=== PATIENT | male | born 1965 | race Caucasian/White ===

== ENCOUNTER 2018-09-15 11:25 | Day surgery (SDC) | payer OTHER, SELFPAY ==
[2018-09-12 14:07] VITALS: BMI 23.7
[2018-09-15] VITALS (7 sets, daily range): BP systolic 109–144; BP diastolic 64–93; PULSE 64–86; RESP 16–18; TEMP 36.7; O2SAT 96–100
--- NOTE | 2018-09-15 12:57 | HMH.PROC ---
[facility] Procedure Note Procedure Note:: Colonoscopy Procedure Report: Colonoscopy Endoscopist: Pradip Lemon II, MD Referring physician: BROOKE Nguyen Date of Procedure: September 15, 2018 Equipment: Olympus 180 variable stiffness pediatric colonoscope Sedation: MAC sedation Indication: Mr. Talbot is a 53-year-old gentleman who is here for diagnostic colonoscopy. He has had some periumbilical abdominal pain, weight loss, nausea and abdominal discomfort. He has some bloating and gassiness. He has some bowel irregularity with constipation that sometimes may alternate to diarrhea. He reports no family history of colon cancer. His symptoms have been for the last 6 months. Procedure: Prior to the procedure, a history and physical exam was performed, and patient's medications and allergies were reviewed. The risks, benefits and alternatives of the sedation and procedure were discussed with the patient. All questions were answered and informed consent was obtained. The patient was brought to the procedure room. Patient identification and proposed procedure were verified by the physician and the nurse. The patient was placed in a left lateral decubitus position and the scope was passed under direct vision. Throughout the procedure, the patient's blood pressure, pulse, and oxygen saturations were monitored continuously. The colonoscopy was accomplished without difficulty. The patient tolerated the procedure well. Findings: On digital rectal examination there was normal rectal tone. There were no external hemorrhoids. The prostate was 2+, smooth, soft, symmetric without nodules. The colonoscope was introduced through the anal canal to the rectum and advanced to the cecum. The ileocecal valve and appendiceal orifice were identified. The scope was advanced a short distance into the ileum which appeared grossly normal. The scope was then withdrawn into the colon. The cecum, ascending and transverse colon and mucosa were grossly normal. There were scattered diverticuli throughout the descending and sigmoid colon (LEFT colon). The rectum itself was normal. Upon retroflexion within the rectum there were grade 1-2 internal hemorrhoids. The preparation was excellent throughout with [place] Preparation Score of 9. The cecal time was 12 minutes. Impression: 1. Left-sided diverticulosis 2. Grade 1-2 internal hemorrhoids Plan: The patient will not require screening/surveillance colonoscopy again for 10 years by ACS guidelines. I would encourage dietary measures and fiber bowel regimen on a long-term daily maintenance basis. Based upon his pain and weight loss, I will recommend imaging study/CAT scan of the abdomen and pelvis with IV/oral contrast.
== END 2018-09-15 14:03 | disposition home or self-care (01) ==
LOC: OUTP 11:27
PROVIDERS: PCP Family Medicine; Visit Provider Internal Medicine Gastroenterology
PROC: 0DJD8ZZ Inspection of Lower Intestinal Tract, Via Natural or Artificial Opening Endoscopic (ICD-10-PCS; CPT 45378; principal; 2018-09-15 12:30)
DX: K57.30 Diverticulosis of large intestine without perforation or abscess without bleeding (principal); K64.0 First degree hemorrhoids
CPT/HCPCS: 45378

== ENCOUNTER → 2018-10-30 10:21 | Outpatient (CLI) | payer OTHER, SELFPAY ==
--- NOTE | 2018-10-30 10:26 | CT_ITS ---
CT abdomen pelvis w con CLINICAL INDICATION: Mid abdominal pain/discomfort. Polyps, diverticulosis ITS.REASON: DIVERTICULOSIS,ABD PAIN,WGTLOSS ORDERING PHYSICIAN: Pradip Lemon MD PATIENT AGE: 53 years COMPARISON: None TECHNIQUE: Contrast Used:75ml Optiray 350 Oral Contrast: 450ml Redicat Axial images obtained with sagittal and coronal reformats. All CT scans at the facility use one or more dose reduction, viz: automated exposure control, ma/kV adjustment per patient size (including targeted exams where dose is matched to indication, i.e. head), or iterative reconstruction technique. FINDINGS: Lung bases are clear. The liver, gallbladder, spleen, adrenal glands, pancreas, and kidneys have an unremarkable appearance. No evidence of appendicitis or diverticulitis. There are few colonic diverticula. There is thickening of the wall of the ascending and transverse colon nonspecific and could be due to nondistention or colitis. No pelvic mass abnormal fluid collection or focal inflammatory change of the pelvis. Postsurgical changes are present from prior right inguinal hernia repair similar to the previous exam. No recurrent hernia evident. There is a small umbilical hernia containing fat unchanged. IMPRESSION: 1. Thickened appearance of the ascending and transverse colon which could be due to nondistention or colitis. 2. Scattered colonic diverticula without diverticulitis. 3. Prior right hernia repair. Small umbilical hernia containing fat
== END ==
PROVIDERS: PCP Family Medicine; Visit Provider Internal Medicine Gastroenterology
DX: K57.30 Diverticulosis of large intestine without perforation or abscess without bleeding (principal); R10.9 Unspecified abdominal pain; R63.4 Abnormal weight loss
CPT/HCPCS: 74177; Q9967

== ENCOUNTER → 2020-10-21 09:46 | Outpatient (CLI) | payer OTHER, SELFPAY ==
--- NOTE | 2020-10-21 09:46 | CT_ITS ---
PROCEDURE: CT SOFT TISSUE NECK WO CON CLINICAL HISTORY: tongue irritation Ulceration on left-sided with left neck swelling COMPARISON: No exams were available for comparison TECHNIQUE: Oral Contrast: None IV Contrast: None Axial images obtained with sagittal and coronal reformats. All CT scans at the facility use one or more dose reduction, viz: automated exposure control, ma/kV adjustment per patient size (including targeted exams where dose is matched to indication, i.e. head), or iterative reconstruction technique. FINDINGS: No obvious nasopharyngeal mass. Minimal calcification is noted within the central the adenoids nonspecific. The oropharynx hypopharynx, larynx, and epiglottis have an unremarkable appearance. No obvious tongue mass. A BB is placed along the left anterior lateral aspect of the neck. Just deep to the BB is a mildly prominent submandibular gland. The right submandibular gland is also somewhat prominent. There are few small cervical lymph nodes bilaterally. No dominant adenopathy is evident. The largest node on the left level 2 a measures 1.9 x 1.2 cm. There is scarring in the lung apices with centrilobular emphysematous change. IMPRESSION: There is prominence of the submandibular glands on both sides left slightly greater than right. A BB is placed of the left neck anteriorly. Just deep to this BB is the submandibular gland. No other abnormalities apparent at that region. Scattered small cervical lymph nodes are present the largest level 2A on the left at 1.9 by 1.2 cm. No tongue mass apparent. No abscess or other significant anomaly. Dictated by: Anton Garcia MD 10/21/2020 11:37 Anton Garcia MD in [place] 10/21/2020 11:37
== END ==
PROVIDERS: PCP Family Medicine; Visit Provider Otolaryngology
DX: K14.9 Disease of tongue, unspecified (principal); R22.0 Localized swelling, mass and lump, head
CPT/HCPCS: 70490

== ENCOUNTER 2021-01-06 18:33 | Emergency (ER) | payer SELFPAY ==
[2021-01-06 18:46] VITALS: BMI 20.3
[2021-01-06 20:15] VITALS: BP 160/94; PULSE 69; RESP 20; TEMP 36.9; O2SAT 98; BMI 22.1
--- NOTE | 2021-01-06 20:42 | HMH.EDUTC ---
[facility] [place] Clinical Impression: Lesion of tongue Disposition: Home, Self-Care Condition on Discharge: Good Instructions: DI for Mouth Lesions, DI for Mouth Pain Additional Instructions: Continue to follow up with Dr. Zapata or you could follow up with Dr. Fernández. I sent a referral to her office. Call her and get an appointment, or continue to see Dr. Zapata. REgardless, make sure you are following up with an ENT doctor. Take the augmentin that we prescribed. Use the lidocaine as directed for pain and discomfort. Follow up with your primary care doctor. GO TO THE ER FOR ANY WORSENING SYMPTOMS OR CONCERNS. Prescriptions: Amoxicillin/Potassium Clav [Augmentin 875-125 Tablet] 1 tab PO Q12H 10 Days #20 tab Transmission Status: Received by [facility] lidocaine HCL [Lidocaine viscous 100mL bottle] 1 applicatio TP TIDP PRN #60 ml PRN Reason: Mouth Irritation Transmission Status: Received by [facility] Referrals: Ambar Ricardo MD [Primary Care Provider] - Yen Fernández MD [Consulting Physician] - Time of Disposition: 20:53 Medical Decision Making - Medical Records Medical records reviewed: No: I reviewed the patient's medical records. - Ozzy Inquiry Pt receiving controlled substance: No Vital Signs: 01/06/21 20:15 01/06/21 21:01 Temperature 98.4 F 98.4 F Temperature Source Oral Pulse Rate 69 Pulse Rate [Left Brachial] 69 Respiratory Rate 20 20 Blood Pressure 160/94 H Blood Pressure [Left Arm] 160/94 H Blood Pressure Mean [Left Arm] 116 Blood Pressure Source [Left Arm] Automatic Cuff Blood Pressure Position [Left Arm] Sitting 02 Sat by Pulse Oximetry 98 Oxygen Delivery Method Room Air [facility] [place] - General Stated complaint: hole in tongue, thrush Time Seen by Provider: 01/06/21 20:42 Mode of Arrival: Ambulatory Source of Information: Patient Limitations: No Limitations Description of Symptoms (Recalled from Triage Doc. by RN): PATIENT C/O HOLE TO BACK OF LEFT SIDE OF TONGUE SINCE SEPTEMBER. HE WAS RECENTLY PRESCRIBED MAGIC MOUTH WASH AND AZITHROMYCIN BY DR. ZAPATA, BUT STATES IT IS NOT HELPING. REPORTS RECENT WEIGHT LOSS D/T NOT BEING ABLE TO EAT HEENT Symptoms (Recalled from RN notes): Yes Resp Symptoms (Recalled from RN notes): No Skin Symptoms (Recalled from RN notes): No MS Symptoms (Recalled from RN notes): No Functional Status (Recalled from RN notes): WNL - History of Present Illness Provider Complaint: He has had a hole in the side of his tongue since September. He has been seeing Dr. Zapata (ENT) for this. He is taking azithromycin and magic mouthwash for this. He states that it is not helping. - Related Data Previous Rx's Medication Instructions Recorded azithromycin 250 mg tablet See Rx Instructions PO .COMPLEX #6 12/23/20 tab Amoxicillin/Potassium Clav 1 tab PO Q12H 10 Days #20 tab 01/06/21 [Augmentin 875-125 Tablet] lidocaine HCL [Lidocaine viscous 1 applicatio TP TIDP PRN #60 ml 01/06/21 100mL bottle] Allergies Allergy/AdvReac Type Severity Reaction Status Date / Time chocolate flavor Allergy Intermediate I-RASH Verified 10/22/20 09:40 [From CHOCOLATE (FOOD/DRUG)] soap Allergy Intermediate I-RASH Verified 10/22/20 09:40 iodine Allergy Verified 10/22/20 09:40 From CHOCOLATE (FOOD/DRUG) Allergy Intermediate I-RASH Uncoded 10/13/20 14:32 - Worker's Comp Is this a Worker's Comp case?: No [facility] History - Hepatitis A Screen Drug use history?: No High risk sexual behaviors?: No History of sexually transmitted infection?: No Currently employed?: No Childcare worker?: No Do you have indoor plumbing?: Yes Do you have electricity?: Yes Attestation statement:: This patient has been screened for Hepatitis A risk factors. I have reviewed the patient's past medical history: Yes Medical History: Denies:: Diabetes Mellitus Type 1, Diabetes Mellitus Type 2, Internal Pacemaker, Lung Disease, Seizures Other [place]
[2021-01-06 21:01] VITALS: BP 160/94; PULSE 69; RESP 20; TEMP 36.9; O2SAT 98
== END 2021-01-06 21:03 | disposition home or self-care (01) ==
PROVIDERS: Emergency Provider Nurse Practitioner Family; PCP Family Medicine
DX: K14.8 Other diseases of tongue (principal); F17.210 Nicotine dependence, cigarettes, uncomplicated
CPT/HCPCS: 99202; G0463

== ENCOUNTER → 2021-01-20 10:46 | Outpatient (CLI) | payer SELFPAY ==
--- NOTE | 2021-01-20 10:49 | CT_ITS ---
PROCEDURE: CT SOFT TISSUE NECK W CON CLINICAL HISTORY: ORAL LESION Ulcerative lesion on left-sided tongue COMPARISON: CT CT SOFT TISSUE NECK WO CON from 10/21/2020 TECHNIQUE: Oral Contrast: None IV Contrast: 75 mL Isovue 370 Axial images obtained with sagittal and coronal reformats. All CT scans at the facility use one or more dose reduction, viz: automated exposure control, ma/kV adjustment per patient size (including targeted exams where dose is matched to indication, i.e. head), or iterative reconstruction technique. FINDINGS: Along the left lateral aspect of the tongue there is a small gas locule measuring approximately 5 mm. Around this area there is an irregular area of contrast enhancement measuring 2.4 by 1.5 cm involving the left lateral aspect of the tongue extending to the buccal surface. Unfortunately there is moderate amount artifact in this region from the patient's dental work. The adjacent mandible does not appear to be eroded. This involves the hyoglossus muscle and base of the lateral aspect of the tongue. The nasopharynx, oropharynx, uvula, hypopharynx, epiglottis, glottic and subglottic region have an unremarkable appearance. Thyroid gland appears unremarkable. Images of the lung apex demonstrate COPD with paraseptal emphysematous changes and biapical scarring. Nodular opacity is present in the right upper lobe posteriorly and may be due to an area of scarring measuring 5 mm. This is adjacent to an area of scarring. The parotid and submandibular glands have an unremarkable appearance. There is a small cervical lymph node in the left jugular chain, level 2 at 1.8 x 0.9 cm. No enlarged nodes apparent. IMPRESSION: Ulcerating 2.4 x 1.5 cm enhancing lesion in the left lateral aspect of the stung as described above. This is suspicious for neoplasm. There is a small left jugular chain node at 1.8 x 0.9 cm. No dominant adenopathy apparent. Dictated by: Anton Garcia MD 01/23/2021 07:47 Anton Garcia MD in [place] 01/23/2021 07:47
== END ==
PROVIDERS: PCP Family Medicine; Visit Provider Otolaryngology
DX: K13.70 Unspecified lesions of oral mucosa (principal)
CPT/HCPCS: 70491; Q9967

== ENCOUNTER 2021-03-06 18:11 | Emergency (ER) | payer SELFPAY ==
[2021-03-06 18:30] VITALS: BP 116/80; PULSE 91; RESP 16; TEMP 37.6; O2SAT 95; BMI 20.3
--- NOTE | 2021-03-06 19:09 | HMH.EDGENADL ---
ED Disposition Clinical Impression: Wound dehiscence, external operation Qualifiers: Encounter type: initial encounter Qualified Code(s): T81.31XA - Disruption of external operation (surgical) wound, not elsewhere classified, initial encounter Disposition: Home, Self-Care Condition on Discharge: Good Instructions: DI for Wound Dehiscence Referrals: Ambar Ricardo MD [Primary Care Provider] - - Critical Care Critical Care Time: No Attestation: On 03/06/21, the high probability of a clinically significant, sudden or life threatening deterioration of the following system(s) required my full and direct attention, intervention and personal management. The time I documented below is in addition to time spent performing reported procedures but includes the following listed in this critical care notation. Medical Decision Making - Medical Records Medical records reviewed: Yes: I reviewed the patient's medical records. - Ozzy Inquiry Pt receiving controlled substance: No Vital Signs: 03/06/21 18:30 Temperature 99.7 F H Temperature Source Oral Pulse Rate [Left Radial] 91 H Respiratory Rate 16 Blood Pressure [Left Arm] 116/80 Blood Pressure Mean [Left Arm] 92 Blood Pressure Source [Left Arm] Automatic Cuff Blood Pressure Position [Left Arm] Sitting 02 Sat by Pulse Oximetry 95 Oxygen Delivery Method Room Air Medical Decision Narrative: 56-year-old male presented to the emergency department for wound evaluation. Patient had recent sutures removed. Patient has evidence of wound dehiscence underneath the chin. I do not believe to be appropriate for closure at this time as sutures were removed over 10 days ago. We will apply wet-to-dry dressing. I did explain to the patient that he is to follow-up with his primary surgeon regarding this. He verbalized understanding. I did instruct him to keep the dressing on until he was evaluated by his primary surgeon. General Adult HPI - General Chief complaint: Skin/Abscess/Foreign Body Stated complaint: SURG 02/23 ON NECK NEED DELISA TO BE BUP BACK IN Time Seen by Provider: 03/06/21 18:35 Mode of Arrival: Ambulatory Limitations: No Limitations Description of Symptoms (Recalled from ER Triage Doc. by RN): pt reports his surgical incision under his chin has dehised. Pt reports had surgery on 02/23/21, delisa were removed on tuesday of this week and now wound is opening back up. pt reports had surgery to remove multiple lymph nodes r/t cancer - History of Present Illness HPI narrative: This is a 56-year-old male presented to the emergency department for wound evaluation. Patient has a history of lymphoma. He states that he was just [facility] and had excisions of some lymph nodes done. Patient had sutures removed 10 days ago. He is concerned because the wound appears to have opened again. Denies any trauma to the area. Not having any discharge. Just has a small area that is open. Is not have any pain in the area. Denies any fevers or chills. No chest pain or shortness of breath. Difficulty swallowing. No abdominal pain or vomiting. No diarrhea. - Related Data Previous Rx's Medication Instructions Recorded azithromycin 250 mg tablet See Rx Instructions PO .COMPLEX #6 12/23/20 tab Amoxicillin/Potassium Clav 1 tab PO Q12H 10 Days #20 tab 01/06/21 [Augmentin 875-125 Tablet] lidocaine HCL [Lidocaine viscous 1 applicatio TP TIDP PRN #60 ml 01/06/21 100mL bottle] Allergies Allergy/AdvReac Type Severity Reaction Status Date / Time chocolate flavor Allergy Intermediate I-RASH Verified 10/22/20 09:40 [From CHOCOLATE (FOOD/DRUG)] soap Allergy Intermediate I-RASH Verified 10/22/20 09:40 iodine Allergy Verified 10/22/20 09:40 From CHOCOLATE (FOOD/DRUG) Allergy Intermediate I-RASH Uncoded 10/13/20 14:32 [facility] History - Hepatitis A Screen Drug use history?: No High risk sexual behaviors?: No History of sexually transmitted infection
[2021-03-06 19:36] VITALS: BP 116/80; PULSE 91; RESP 16; TEMP 37.6; O2SAT 95
--- NOTE | 2021-03-06 19:36 | PC.NURSE ---
sterile wet to dry dressing placed over wound (no packed) per ER MD verbal order. Pt tolerated well.
== END 2021-03-06 19:36 | disposition home or self-care (01) ==
PROVIDERS: Emergency Provider Emergency Medicine; PCP Family Medicine
DX: T81.31XA Disruption of external operation (surgical) wound, not elsewhere classified, initial encounter (principal); C85.81 Other specified types of non-Hodgkin lymphoma, lymph nodes of head, face, and neck
CPT/HCPCS: 99281

== ENCOUNTER 2021-06-28 15:11 | Emergency (ER) | payer SELFPAY ==
[2021-06-28 15:12] VITALS: BP 143/104; PULSE 115; RESP 20; O2SAT 99; BMI 19.0
[2021-06-28 16:01] VITALS: BP 176/97; PULSE 107; RESP 18; O2SAT 98
--- NOTE | 2021-06-28 16:25 | CT_ITS ---
PROCEDURE INFORMATION: Exam: CT Abdomen And Pelvis With Contrast Exam date and time: 06/28/2021 4:25 PM Age: 56 years old Clinical indication: Other: Gtube clogged; Prior surgery; Surgery date: 6+ months; Additional info: Gtube pain/clogged TECHNIQUE: Imaging protocol: Computed tomography of the abdomen and pelvis with contrast. Radiation optimization: All CT scans at this facility use at least one of these dose optimization techniques: automated exposure control; mA and/or kV adjustment per patient size (includes targeted exams where dose is matched to clinical indication); or iterative reconstruction. Contrast material: ISOVUE; Contrast volume: 75 ml; Contrast route: IV; COMPARISON: ABDPELW CT abdomen pelvis w con 10/30/2018 11:37 AM FINDINGS: Tubes, catheters and devices: Malpositioned PEG tube. The hub of the tube is located anterior to the stomach, and has likely eroded through the gastric wall and appears imbedded in the anterior abdominal wall, suggesting buried bumper syndrome . There is a small loculated slightly dense fluid collection surrounding the tube and hub, measuring approximately 7.3 cm transverse diameter and 2.1 cm thickness series 3, image 43. Correlate clinically to exclude infection. No gas bubbles are seen within this. There is also some nonspecific free fluid located in the posterior lower pelvis which may be some free intraperitoneal leakage of fluid from the tube, versus intraperitoneal fluid of other etiology. Lungs: No acute findings in the visualized lower lungs. No consolidation. Liver: The liver is normal. Gallbladder and bile ducts: The gallbladder is unremarkable. No calcified stones or biliary dilatation. Pancreas: The pancreas is normal. Spleen: The spleen is normal. Adrenal glands: The adrenal glands are normal. Kidneys and ureters: The kidneys are normal. The ureters are normal. Stomach and bowel: A diffusely thickened, edematous appearance of the colon, from the cecum through the upper sigmoid, worrisome for colitis. Some small intestinal air-fluid levels, but no significantly dilated loops or mucosal thickening. PEG tube has eroded through the anterior gastric wall and is located outside the stomach, as detailed above. No other acute findings in the stomach. Appendix: No findings of appendicitis. Intraperitoneal space: Small amount of low-density free fluid in the cul-de-sac, HU measurements 5-10.There is no free intraperitoneal air. Vasculature: The vasculature demonstrates scattered mild atherosclerotic calcification. There is no aortic aneurysm. No portal venous gas. Lymph nodes: No significantly enlarged lymph nodes by short axis criteria. Urinary bladder: Mildly thickened urinary bladder wall could be due to cystitis or bladder hypertrophy. No calcified stones. Reproductive: The prostate and seminal vesicles are normal. Bones/joints: Mild spinal degenerative changes with disc disease, spondylosis, facet arthropathy. Mild grade 1 degenerative anterolisthesis L5-S1. Soft tissues: There are no soft tissue masses. IMPRESSION: 1. Malpositioned PEG tube. Findings of Buried Bumper Syndrome. The PEG hub has eroded through the anterior gastric wall and appears imbedded in the anterior abdominal wall, with a loculated surrounding fluid collection as detailed above, likely due to leakage of fluid. Correlate clinically to exclude infection. 2. Findings worrisome for colitis, thickened edematous appearance of the colon from the cecum through the upper sigmoid. This is nonspecific etiology, C difficile colitis would be a consideration. 3. There is a small amount of free fluid in the cul-de-sac; this
[2021-06-28 16:30] LABS: Basophils # 0.1 K/mm3 (0-0.2); Basophils % 1.5 % (0.1-2.0); Eosinophils # 0.1 K/mm3 (0.0-0.4); Eosinophils % 1.4 % (0.1-12.0); Hematocrit 40.6 % (42.0-52.0); Hemoglobin 13.1 g/dL (14.1-18.0); Lymphocytes # 2.2 K/mm3 (0.7-4.5); Lymphocytes % 29.7 % (10-50); Mean Corpuscular HGB Conc 32.3 g/dL (31.8-35.4); Mean Corpuscular Hemoglobin 32.7 pg (27.0-31.2); Mean Corpuscular Volume 101.2 fl (80-94); Mean Platelet Volume 8.4 fl (7.4-10.4); Monocytes # 0.5 K/mm3 (0.1-1.0); Monocytes % 6.6 % (1.7-9.3); Neutrophils # 4.5 K/mm3 (1.8-7.8); Neutrophils % 60.9 % (37.0-80.0); Platelet Count 492 K/mm3 (142-424); Red Blood Count 4.02 M/mm3 (4.60-6.20); Red Cell Distribution Width 17.6 % (11.5-17.5); White Blood Count 7.5 K/mm3 (4.8-10.8)
[2021-06-28 16:33] LABS: Chloride 92 mmol/L (98-107); Sodium 125 mmol/L (136-145)
[2021-06-28 16:35] LABS: Blood Urea Nitrogen 4 mg/dl (9-20); Creatinine Clearance Estimated 107 mL/min (50-200); Estimated Glomerular Filt Rate 117 ml/min (>60); GFR (African American) 142 ML/MIN (>60)
[2021-06-28 16:36] LABS: Alanine Aminotransferase 21 U/L (12-78); Albumin/Globulin Ratio 1.3 (1.1-1.8); Alkaline Phosphatase 134 U/L (38-126); Aspartate Amino Transferase 37 U/L (17-59); Bilirubin,Total 0.8 mg/dl (0.2-1.3); Calcium 9.1 mg/dl (8.4-10.2); Carbon Dioxide 21 mmol/L (22.0-30.0); Globulin 3.2 g/dL (1.3-3.2); Glucose 93 mg/dl (74-100); Total Protein,Serum 7.2 g/dl (6.3-8.2)
--- NOTE | 2021-06-28 16:37 | HMH.EDGENADL ---
ED Disposition Clinical Impression: Complication of gastrostomy tube Disposition: Home, Self-Care Condition on Discharge: Fair Additional Instructions: Do not flush gastrostomy tube. See Dr. Swain in his office tomorrow. Call his office at 9 AM to make an appointment to be seen tomorrow. Return to the emergency department if worsening pain or fever or vomiting repetitively. Referrals: Ambar Ricardo MD [Primary Care Provider] - Laurent Swain MD [Staff Physician] - - Critical Care Critical Care Time: No Attestation: On 06/28/21, the high probability of a clinically significant, sudden or life threatening deterioration of the following system(s) required my full and direct attention, intervention and personal management. The time I documented below is in addition to time spent performing reported procedures but includes the following listed in this critical care notation. Medical Decision Making - Ozzy Inquiry Pt receiving controlled substance: No Vital Signs: 06/28/21 15:12 06/28/21 16:01 06/28/21 17:04 Temperature 98.1 F Temperature Source Oral Pulse Rate 107 H Pulse Rate [Left Radial] 115 H Respiratory Rate 20 18 Blood Pressure 176/97 H Blood Pressure [Right Arm] 143/104 H Blood Pressure Mean 125 Blood Pressure Mean [Right Arm] 117 Blood Pressure Source [Right Arm] Automatic Cuff Blood Pressure Position [Right Arm] Sitting 02 Sat by Pulse Oximetry 99 98 Oxygen Delivery Method Room Air - Lab Data Lab Results 06/28/21 16:00: WBC 7.5, RBC 4.02 L, Hgb 13.1 L, Hct 40.6 L, MCV 101.2 H, MCH 32.7 H, MCHC 32.3, RDW 17.6 H, Plt Count 492 H, MPV 8.4, Neut % (Auto) 60.9, Lymph % (Auto) 29.7, Carroll % (Auto) 6.6, Eos % (Auto) 1.4, Baso % (Auto) 1.5, Neut # (Auto) 4.5, Lymph # (Auto) 2.2, [place] # (Auto) 0.5, Eos # (Auto) 0.1, Baso # (Auto) 0.1 06/28/21 16:00: Sodium 125 L, Potassium 4.0, Chloride 92 L, Carbon Dioxide 21 L, Anion Gap 16.0 H, BUN 4 L, Creatinine 0.70, Estimated Creat Clear 107, Estimated GFR 117, Est GFR ( Amer) 142, Glucose 93, Calcium 9.1, Total Bilirubin 0.8, AST 37, ALT 21, Alkaline Phosphatase 134 H, Total Protein 7.2, Albumin 4.0, Globulin 3.2, Albumin/Globulin Ratio 1.3 06/28/21 16:00: Lipase 53 06/28/21 16:00: Total Bilirubin 0.7, Direct Bilirubin 0.5 H, Conjugated Bilirubin 0.0, Indirect Bilirubin 0.2, Unconjugated Bilirubin 0.2, AST 39, ALT 22, Alkaline Phosphatase 135 H, Total Protein 7.2, Albumin 4.0 Result diagrams: 06/28/21 16:00 06/28/21 16:00 Orders (Tests/Meds): ED MEDICATIONS Discontinued Medications Generic Name Dose Route Start Last Admin Trade Name Freq PRN Reason Stop Dose Admin Iopamidol 75 ml 06/28/21 16:44 06/28/21 16:45 Iopamidol-370 (76%);100ml Bottle IV 06/28/21 16:45 75 ml ONCE ONE Administration Morphine Sulfate 4 mg 06/28/21 18:24 Morphine 2mg/Ml Syringe IV 06/28/21 18:25 ONCE ONE Ondansetron HCl 4 mg 06/28/21 18:24 Ondansetron 4mg/2ml Vial IV 06/28/21 18:25 ONCE ONE Sodium Chloride 10 ml 06/28/21 16:44 06/28/21 16:45 Sodium Chloride 0.9% 10ml Syr (Rad Only) IV 06/28/21 16:45 10 ml ONCE ONE Administration - Physician Consults Physician Consulted: Wiliam Time: 18:10 Reason -: Surgical Eval/Care Comment/Response: Discussed all clinical findings including patient's symptomatology and examination. Discussed CT reading. He feels patient can be discharged home to follow-up with him in the office tomorrow. He states he will likely have to remove the gastrostomy tube and it would have to be replaced at a later date. Patient very much wants to be discharged home and does not want to stay in the hospital. He is agreeable with this plan. He is to call Dr. Swain's office tomorrow at 9 AM to be seen tomorrow. General Adult HPI - General Chief complaint: PAIN Stated complaint: possible feeding tube clog Time Seen by Provider: 06/28/21 16:38 Mode of Arrival: Ambulatory Li
[2021-06-28 16:49] LABS: Alanine Aminotransferase 22 U/L (12-78); Alkaline Phosphatase 135 U/L (38-126); Aspartate Amino Transferase 39 U/L (17-59); Bilirubin,Direct 0.5 mg/dl (0.0-0.4); Bilirubin,Indirect 0.2 mg/dL (0.0-0.9); Bilirubin,Total 0.7 mg/dl (0.2-1.3); Bilirubin,Unconjugated 0.2 mg/dL (0.0-1.1)
[2021-06-28 16:50] LABS: Lipase 53 U/L (23-300); Total Protein,Serum 7.2 g/dl (6.3-8.2)
[2021-06-28 17:04] VITALS: TEMP 36.7
--- NOTE | 2021-06-28 18:11 | PC.NURSE ---
Dr Bobo speaking with Dr kimball
--- NOTE | 2021-06-28 18:11 | PC.NURSE ---
pt shivering given warm blankets
[2021-06-28 19:22] VITALS: BP 155/88; PULSE 102; RESP 20; TEMP 36.7; O2SAT 98
== END 2021-06-28 19:24 | disposition home or self-care (01) ==
PROVIDERS: Emergency Provider Emergency Medicine; PCP Family Medicine
DX: K94.20 Gastrostomy complication, unspecified (principal); F17.210 Nicotine dependence, cigarettes, uncomplicated; Z79.899 Other long term (current) drug therapy; Z88.8 Allergy status to other drugs, medicaments and biological substances; Z91.018 Allergy to other foods; Z91.048 Other nonmedicinal substance allergy status; Z85.841 Personal history of malignant neoplasm of brain; Z85.89 Personal history of malignant neoplasm of other organs and systems
CPT/HCPCS: 74177; 80053; 80076; 83690; 85025; 96374; 96375; 99284; J2405; Q9967

== ENCOUNTER 2021-07-01 21:47 | Inpatient (IN) | payer SELFPAY ==
[2021-07-01 21:48] VITALS: BP 147/86; PULSE 118; RESP 18; TEMP 36.7; O2SAT 99; BMI 19.0
--- NOTE | 2021-07-01 22:20 | CT_ITS ---
PROCEDURE INFORMATION: Exam: CT Abdomen And Pelvis With Contrast Exam date and time: 07/01/2021 10:20 PM Age: 56 years old Clinical indication: Vomiting; Prior surgery; Surgery type: G-tube; Additional info: Vomiting, malfunctioning g tube, concern for absce TECHNIQUE: Imaging protocol: Computed tomography of the abdomen and pelvis with contrast. Radiation optimization: All CT scans at this facility use at least one of these dose optimization techniques: automated exposure control; mA and/or kV adjustment per patient size (includes targeted exams where dose is matched to clinical indication); or iterative reconstruction. Contrast material: ISOVUE; Contrast volume: 75 ml; Contrast route: IV; COMPARISON: CT ABDOMEN PELVIS W CON 06/28/2021 4:38 PM FINDINGS: Tubes, catheters and devices: Gastrostomy tube bulb is located extrinsic to the gastric lumen located between the posterior margin of the left rectus muscle and the anterior margin of the stomach. Liver: Normal. No mass. Gallbladder and bile ducts: Normal. No calcified stones. No ductal dilation. Pancreas: Normal. No ductal dilation. Spleen: Normal. No splenomegaly. Adrenal glands: Normal. No mass. Kidneys and ureters: Minimal striated posterior right renal cortex. New 1.9 cm area of decreased density/decreased enhancement in the posterior aspect of the left kidney. No hydronephrosis. Stomach and bowel: Fluid-filled distended stomach. No obstruction. No mucosal thickening. Appendix: No evidence of appendicitis. Intraperitoneal space: Small volume of pelvic free fluid. Vasculature: Mild atherosclerotic changes are seen within the abdominal aorta and branch vasculature without evidence of aneurysm. Lymph nodes: Unremarkable. No enlarged lymph nodes. Urinary bladder: Unremarkable as visualized. Reproductive: Unremarkable as visualized. Bones/joints: Unremarkable. No acute fracture. Soft tissues: Unremarkable. IMPRESSION: 1. Gastrostomy tube bulb is located extrinsic to the gastric lumen and has not changed position compared to the previous examination. 2. Small volume of pelvic free fluid. 3. Fluid-filled, distended stomach. 4. Possible changes of pyelonephritis within both kidneys.
--- NOTE | 2021-07-01 22:22 | XR_ITS ---
PROCEDURE INFORMATION: Exam: XR Chest Exam date and time: 07/01/2021 10:22 PM Age: 56 years old Clinical indication: Other: Vomiting; Additional info: Vomiting, assess for pneumoperitoneuam TECHNIQUE: Imaging protocol: XR of the chest. Views: 1 view. COMPARISON: CT ABDOMEN PELVIS W CON 07/01/2021 10:42 PM FINDINGS: Lungs: Unremarkable. No consolidation. Pleural spaces: Unremarkable. No pleural effusion. No pneumothorax. Heart/Mediastinum: Unremarkable. No cardiomegaly. Bones/joints: Unremarkable. IMPRESSION: No acute findings.
[2021-07-01 22:30] VITALS: BP 126/73; PULSE 110; O2SAT 100
[2021-07-01 22:38] LABS: Basophils % 0.2 % (0.1-2.0); Eosinophils # 0.2 K/mm3 (0.0-0.4); Hematocrit 34.8 % (42.0-52.0); Hemoglobin 11.5 g/dL (14.1-18.0); Lymphocytes # 0.5 K/mm3 (0.7-4.5); Lymphocytes % 2.7 % (10-50); Mean Corpuscular HGB Conc 32.9 g/dL (31.8-35.4); Mean Corpuscular Hemoglobin 32.3 pg (27.0-31.2); Mean Platelet Volume 8.3 fl (7.4-10.4); Monocytes # 0.5 K/mm3 (0.1-1.0); Monocytes % 2.7 % (1.7-9.3); Neutrophils # 15.6 K/mm3 (1.8-7.8); Neutrophils % 93.3 % (37.0-80.0); Platelet Count 218 K/mm3 (142-424); Red Blood Count 3.56 M/mm3 (4.60-6.20); Red Cell Distribution Width 17.2 % (11.5-17.5); White Blood Count 16.8 K/mm3 (4.8-10.8)
[2021-07-01 22:39] LABS: Chloride 82 mmol/L (98-107); Sodium 118 mmol/L (136-145)
[2021-07-01 22:40] LABS: Potassium 3.3 mmoL/L (3.5-5.1)
[2021-07-01 22:42] LABS: Alanine Aminotransferase 31 U/L (12-78); Albumin Level 3.5 g/dl (3.5-5.0); Albumin/Globulin Ratio 1.3 (1.1-1.8); Alkaline Phosphatase 122 U/L (38-126); Anion Gap 13.3 mEq/L (5-15); Aspartate Amino Transferase 35 U/L (17-59); Bilirubin,Total 0.5 mg/dl (0.2-1.3); Blood Urea Nitrogen 6 mg/dl (9-20); Calcium 7.9 mg/dl (8.4-10.2); Carbon Dioxide 26 mmol/L (22.0-30.0); Creatinine Clearance Estimated 125 mL/min (50-200); Estimated Glomerular Filt Rate 140 ml/min (>60); GFR (African American) 169 ML/MIN (>60); Globulin 2.8 g/dL (1.3-3.2); Glucose 144 mg/dl (74-100); Lipase 14 U/L (23-300); MANUAL DIFFERENTIAL MANUAL DIFFERENTIAL (MANUAL DIFF); Total Protein,Serum 6.3 g/dl (6.3-8.2)
--- NOTE | 2021-07-01 22:50 | HMH.EDGENADL ---
ED Disposition Clinical Impression: Dehydration Sepsis Qualifiers: Sepsis type: sepsis due to unspecified organism Sepsis acute organ dysfunction status: without acute organ dysfunction Qualified Code(s): A41.9 - Sepsis, unspecified organism Disposition: Admitted As Inpatient Condition on Discharge: Fair - Critical Care Critical Care Time: No Attestation: On 07/01/21, the high probability of a clinically significant, sudden or life threatening deterioration of the following system(s) required my full and direct attention, intervention and personal management. The time I documented below is in addition to time spent performing reported procedures but includes the following listed in this critical care notation. Medical Decision Making - Medical Records Medical records reviewed: Yes: I reviewed the patient's medical records. - Ozzy Inquiry Pt receiving controlled substance: No Vital Signs: 07/01/21 21:48 07/01/21 22:30 07/01/21 23:00 Temperature 98.1 F Temperature Source Oral Pulse Rate 110 H 110 H Pulse Rate [Apical] 118 H Respiratory Rate 18 Blood Pressure 126/73 149/82 H Blood Pressure [Right Arm] 147/86 H Blood Pressure Mean Blood Pressure Mean [Right Arm] 106 Blood Pressure Source [Right Arm] Automatic Cuff Blood Pressure Position [Right Arm] Sitting 02 Sat by Pulse Oximetry 99 100 99 Oxygen Delivery Method Room Air Room Air Room Air 07/01/21 23:30 07/02/21 00:30 07/02/21 01:00 Temperature 99.2 F Temperature Source Oral Pulse Rate 111 H 114 H 108 H Pulse Rate [Apical] Respiratory Rate Blood Pressure 153/85 H 142/71 H 145/97 H Blood Pressure [Right Arm] Blood Pressure Mean 110 Blood Pressure Mean [Right Arm] Blood Pressure Source [Right Arm] Blood Pressure Position [Right Arm] 02 Sat by Pulse Oximetry 96 95 96 Oxygen Delivery Method Room Air Room Air Room Air - Lab Data Lab Results 07/01/21 22:22: WBC 16.8 H, RBC 3.56 L, Hgb 11.5 L, Hct 34.8 L, MCV 98.0 H, MCH 32.3 H, MCHC 32.9, RDW 17.2, Plt Count 218 D, MPV 8.3, Neut % (Auto) 93.3 H, Lymph % (Auto) 2.7 L, [place] % (Auto) 2.7, Eos % (Auto) 1.0, Baso % (Auto) 0.2, Neut # (Auto) 15.6 H, Lymph # (Auto) 0.5 L, [place] # (Auto) 0.5, Eos # (Auto) 0.2, Baso # (Auto) 0.0, Total Counted 100, Neutrophils % (Manual) 96 H, Lymphocytes % (Manual) 3 L, Monocytes % (Manual) 1 L, Platelet Estimate Normal, RBC Morphology Not Reportable, Stomatocytes 1+ 07/01/21 22:22: Sodium 118 L, Potassium 3.3 L, Chloride 82 L, Carbon Dioxide 26, Anion Gap 13.3, BUN 6 L, Creatinine 0.60 L, Estimated Creat Clear 125, Estimated GFR 140, Est GFR ( Amer) 169, Glucose 144 H, Calcium 7.9 L, Total Bilirubin 0.5, AST 35, ALT 31, Alkaline Phosphatase 122, Total Protein 6.3, Albumin 3.5, Globulin 2.8, Albumin/Globulin Ratio 1.3, Lipase 14 L 07/01/21 23:45: Lactate 2.6 H 07/02/21 00:14: Urine Color Yellow, Urine Appearance Clear, Urine pH 8.5, Ur Specific [place] 1.015, Urine Protein Negative, Urine Glucose (UA) Trace, Urine Ketones Negative, Urine Blood Trace-i, Urine Nitrate Negative, Urine Bilirubin Negative, Urine Urobilinogen 0.2, Ur Leukocyte Esterase Negative, Urine RBC Occasional, Urine WBC 3-5, Urine Bacteria 1+ Result diagrams: 07/01/21 22:22 07/01/21 22:22 Orders (Tests/Meds): ED MEDICATIONS Generic Name Dose Route Start Last Admin Trade Name Danilo PRN Reason Stop Dose Admin Sodium Chloride 1,000 mls @ 999 mls/hr 07/01/21 22:30 07/01/21 22:44 Sod Chlor 0.9% 1000ml Bag IV 07/01/21 23:30 Not Given .Q1H1M MARTA Lactated Ringer's 1,000 mls @ 999 mls/hr 07/01/21 22:45 07/01/21 22:45 Lactated Ringer's 1000 Ml Bag IV 07/01/21 23:45 999 mls/hr .Q1H1M MARTA Administration Lactated Ringer's 1,000 mls @ 999 mls/hr 07/02/21 01:00 07/02/21 01:09 Lactated Ringer's 1000 Ml Bag IV 07/02/21 02:00 999 mls/hr .Q1H1M MARTA Administration Lactated Ringer's 1,000 mls @ 150 mls/hr 07/02/21 02:00 Lactated R
[2021-07-01 23:00] VITALS: BP 149/82; PULSE 110; O2SAT 99
--- NOTE | 2021-07-01 23:08 | PC.NURSE ---
Rechecked pt condition. Warm blanket given.
[2021-07-01 23:30] VITALS: BP 153/85; PULSE 111; O2SAT 96
[2021-07-02] VITALS (10 sets, daily range): BP systolic 119–168; BP diastolic 68–97; PULSE 66–116; RESP 16–20; TEMP 36.6–37.3; O2SAT 95–99; BMI 19.2
[2021-07-02 00:06] LABS: Lactic Acid 2.6 mmol/L (0.7-2.1)
--- NOTE | 2021-07-02 00:08 | PC.NURSE ---
Updated pt on POC. No needs.
--- NOTE | 2021-07-02 00:12 | PC.NURSE ---
Md made aware of pt's elevated lactic as well as SIRS criteria. states he will place new orders.
[2021-07-02 00:28] LABS: Microscopic, Urine URINE MICROSCOPIC (MICROSCOPIC)
--- NOTE | 2021-07-02 00:37 | PC.NURSE ---
Pt taking a nap, family at bedside
[2021-07-02 00:38] LABS: Appearance,Urine CLEAR (Clear); Bilirubin,Urine Negative (Negative); Blood, Urine TRACE-I (Negative); Color,Urine YELLOW (Yellow); Glucose,Urine (UA) TRACE (Negative); Ketones,Urine Negative (Negative); Leukocyte Esterase,Urine Negative (Negative); Nitrate,Urine Negative (Negative); PH,Urine 8.5 (5.0-8.5); Protein,Urine Negative (Negative); Specific Gravity, Urine 1.015 (1.005-1.030); Urobilinogen,Urine 0.2 EU/dl (0.2)
[2021-07-02 01:02] LABS: Bacteria,Urine 1+ /lpf; RBC,Urine Occasional #/hpf (0-3)
--- NOTE | 2021-07-02 01:05 | PC.NURSE ---
RATNA REYES speaking with Dr. Stover at this time.
[2021-07-02 01:33] LABS: Lymphocytes % 3 % (10-50); Monocytes % 1 % (2-9); Neutrophils % 96 % (42-76); Platelet Estimate Normal; Total Cells Counted 100
[2021-07-02 01:34] LABS: Stomatocytes 1+
--- NOTE | 2021-07-02 01:42 | PC.NURSE ---
RATNA REYES speaking with Dr. Arreola.
[2021-07-02 01:58] LABS: Coronavirus 19, PCR Not Detected (NotDetected); Influenza A, PCR Not Detected (NotDetected); Influenza B, PCR Not Detected (NotDetected)
--- NOTE | 2021-07-02 02:51 | PC.NURSE ---
pt arrived to the floor via stretcher at this time
[2021-07-02 03:58] LABS: Reflex Lactic Add Lactic Reflex
[2021-07-02 05:03] LABS: Lactic Acid Follow Up (RFLX 1) 0.9 mmol/L (0.7-2.1)
[2021-07-02 05:04] LABS: Anion Gap 9.8 mEq/L (5-15); Blood Urea Nitrogen 6 mg/dl (9-20); Calcium 7.8 mg/dl (8.4-10.2); Carbon Dioxide 29 mmol/L (22.0-30.0); Chloride 84 mmol/L (98-107); Creatinine Clearance Estimated 152 mL/min (50-200); Estimated Glomerular Filt Rate 173 ml/min (>60); GFR (African American) 209 ML/MIN (>60); Glucose 132 mg/dl (74-100); Sodium 120 mmol/L (136-145)
[2021-07-02 05:05] LABS: Basophils % 0.2 % (0.1-2.0); Eosinophils % 0.3 % (0.1-12.0); Hematocrit 33.2 % (42.0-52.0); Hemoglobin 10.8 g/dL (14.1-18.0); Lymphocytes # 0.7 K/mm3 (0.7-4.5); Mean Corpuscular HGB Conc 32.5 g/dL (31.8-35.4); Mean Corpuscular Hemoglobin 32.1 pg (27.0-31.2); Mean Corpuscular Volume 98.7 fl (80-94); Monocytes # 0.8 K/mm3 (0.1-1.0); Monocytes % 4.5 % (1.7-9.3); Neutrophils # 15.4 K/mm3 (1.8-7.8); Platelet Count 218 K/mm3 (142-424); Red Blood Count 3.37 M/mm3 (4.60-6.20); Red Cell Distribution Width 17.3 % (11.5-17.5); White Blood Count 16.9 K/mm3 (4.8-10.8)
[2021-07-02 05:07] LABS: Potassium 2.8 mmoL/L (3.5-5.1)
--- NOTE | 2021-07-02 07:24 | HMH.PHAVTE ---
[facility] Pharmacy VTE Monitoring - Patient Demographics Admission date: 07/02/21 Report Date: 07/02/21 Time: 07:24 Allergies/Adverse Reactions: Patient Allergies chocolate flavor [From CHOCOLATE (FOOD/DRUG)] Allergy (Intermediate, Verified 10/22/20 09:40) I-RASH soap Allergy (Intermediate, Verified 10/22/20 09:40) I-RASH iodine Allergy (Verified 10/22/20 09:40) From CHOCOLATE (FOOD/DRUG) Allergy (Intermediate, Uncoded 10/13/20 14:32) I-RASH Height: 1.83 m Weight: 64.501 kg Patient Problems: Current Active Problems Sepsis (Acute) Dehydration (Acute) - VTE Risk Labs: VTE Related Lab Results Hgb 10.8 g/dL (14.1-18.0) L 07/02/21 04:20 Hct 33.2 % (42.0-52.0) L 07/02/21 04:20 Plt Count 218 K/mm3 (142-424) 07/02/21 04:20 BUN 6 mg/dl (9-20) L 07/02/21 04:20 Creatinine 0.50 mg/dl (0.66-1.25) L 07/02/21 04:20 Estimated Creat Clear 152 mL/min (50-200) 07/02/21 04:20 Was VTE Risk Assessment Performed: Yes VTE Score: 1 Clinical Trial Participant: No - Prophylaxis VTE Prophylaxis Ordered?: Yes Types of VTE Prophylaxis: TEDS Knee High
--- NOTE | 2021-07-02 07:38 | HMH.PHAINT ---
home medication list verified using list from [facility] and speaking with .
--- NOTE | 2021-07-02 08:02 | HMH.HP ---
*Admission Date: 07/02/21 *Chief complaint: Weakness/vomiting *History of present illness: 56-year-old male presented to the ER with family over concerns about persistent vomiting over the last 48 hours. Patient has a G-tube which has not been in use for 2 months according to the . 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 Management of this has been performed at . Patient had visited the emergency department on June 28 with abdominal pain and vomiting. There was abnormality of the G-tube seen on CT scan which would require G-tube removal. Patient was supposed to have evaluation as an outpatient but with development of vomiting with attempts at liquids over the last 48 hours he returned to the emergency department. Patient was tachycardic which raises the possibility of sepsis and underwent further work-up. No source of infection was identified. Patient had elevated lactate level which has returned to normal. Patient was admitted and placed on IV antibiotics for suspected infection. Blood cultures have been drawn. History is obtained from patient's and the ER record. Patient seems somewhat sedated this morning and cannot provide much historical information regarding his cancer diagnosis. 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 No: Pacemaker - *Social History Smoking Status: Current every day smoker Tobacco Type: cigarettes # Packs/Day (cigarettes): 1 Alcohol Intake: current Alcohol Intake Frequency:: 3 or more drinks per day Substance Use Type: marijuana *Occupational Status:: employed Housing: house Household Members: spouse *Travel in the last 8 weeks: None Family Hx:: Unable to obtain Review of Systems - Constitutional Reports anorexia, Reports fatigue, Reports lack of energy - Eyes Denies blurry vision, Denies change in vision - ENT Reports facial pain (Related to prior head and neck surgery), Denies difficulty swallowing, Denies mouth lesions, Denies mouth pain - *Cardiovascular Denies chest pain at rest, Denies chest pain with activity - *Respiratory Denies change in phlegm color, Denies chest congestion, Denies cough - *Gastrointestinal Reports vomiting, Denies abdominal pain - *Genitourinary Denies difficulty urinating - *Musculoskeletal Reports joint pain - *Neurologic Denies abnormal hearing, Denies abnormal movements Meds Home Medications Medication Instructions Recorded Confirmed Type Gabapentin [Neurontin 600mg 600 mg PO TID 07/02/21 07/02/21 History tablet] Oxycodone HCl [Oxycodone (IR) 10mg 1 - 2 tab PO Q4HP PRN 07/02/21 07/02/21 History Tab] Prochlorperazine Maleate 10 mg PO Q6HP PRN 07/02/21 07/02/21 History Allergies Allergy/AdvReac Type Severity Reaction Status Date / Time chocolate flavor Allergy Intermediate I-RASH Verified 10/22/20 09:40 [From CHOCOLATE (FOOD/DRUG)] soap Allergy Intermediate I-RASH Verified 10/22/20 09:40 iodine Allergy Unknown Verified 07/02/21 07:58 allergy reaction Exam Vital signs and Labs for Last 24 Hours: Temp Pulse Resp BP Pulse Ox 98.1 F 68 16 140/78 96 07/02/21 05:07 07/02/21 05:07 07/02/21 05:07 07/02/21 05:07 07/02/21 05:07 Laboratory Results - last 24 hr 07/01/21 22:22: WBC 16.8 H, RBC 3.56 L, Hgb 11.5 L, Hct 34.8 L, MCV 98.0 H, MCH 32.3 H, MCHC 32.9, RDW 17.2, Plt Count 218 D, MPV 8.3, Neut % (Auto) 93.3 H, Lymph % (Auto) 2.7 L, [place] % (Auto) 2.7, Eos % (Auto) 1.0, Baso % (Auto) 0.2, Neut # (Auto) 15.6 H, Lymph # (Auto) 0.5 L, [place] # (Auto) 0.5, Eos # (Auto) 0.2, Baso # (Aut
--- NOTE | 2021-07-02 08:42 | HMH.PHACONS ---
- Pharmacy Consult Date: 07/02/21 Time: 08:42 Referring provider: DR. WINSTON Reason for Consult:: VANCOMYCIN DOSING Allergies and ADEs:: Allergies Allergy/AdvReac Type Severity Reaction Status Date / Time chocolate flavor Allergy Intermediate I-RASH Verified 10/22/20 09:40 [From CHOCOLATE (FOOD/DRUG)] soap Allergy Intermediate I-RASH Verified 10/22/20 09:40 iodine Allergy Unknown Verified 07/02/21 07:58 allergy reaction Home Medications:: Home Medications Medication Instructions Recorded Confirmed Type Gabapentin [Neurontin 600mg 600 mg PO TID 07/02/21 07/02/21 History tablet] Oxycodone HCl [Oxycodone (IR) 10mg 1 - 2 tab PO Q4HP PRN 07/02/21 07/02/21 History Tab] Prochlorperazine Maleate 10 mg PO Q6HP PRN 07/02/21 07/02/21 History Height: 1.83 m Weight: 64.501 kg Laboratory Results:: Laboratory Results - last 24 hr 07/01/21 22:22: WBC 16.8 H, RBC 3.56 L, Hgb 11.5 L, Hct 34.8 L, MCV 98.0 H, MCH 32.3 H, MCHC 32.9, RDW 17.2, Plt Count 218 D, MPV 8.3, Neut % (Auto) 93.3 H, Lymph % (Auto) 2.7 L, [place] % (Auto) 2.7, Eos % (Auto) 1.0, Baso % (Auto) 0.2, Neut # (Auto) 15.6 H, Lymph # (Auto) 0.5 L, [place] # (Auto) 0.5, Eos # (Auto) 0.2, Baso # (Auto) 0.0, Total Counted 100, Neutrophils % (Manual) 96 H, Lymphocytes % (Manual) 3 L, Monocytes % (Manual) 1 L, Platelet Estimate Normal, RBC Morphology Not Reportable, Stomatocytes 1+ 07/01/21 22:22: Sodium 118 L, Potassium 3.3 L, Chloride 82 L, Carbon Dioxide 26, Anion Gap 13.3, BUN 6 L, Creatinine 0.60 L, Estimated Creat Clear 125, Estimated GFR 140, Est GFR ( Amer) 169, Glucose 144 H, Calcium 7.9 L, Total Bilirubin 0.5, AST 35, ALT 31, Alkaline Phosphatase 122, Total Protein 6.3, Albumin 3.5, Globulin 2.8, Albumin/Globulin Ratio 1.3, Lipase 14 L 07/01/21 23:45: Lactate 2.6 H 07/02/21 00:14: Urine Color Yellow, Urine Appearance Clear, Urine pH 8.5, Ur Specific [place] 1.015, Urine Protein Negative, Urine Glucose (UA) Trace, Urine Ketones Negative, Urine Blood Trace-i, Urine Nitrate Negative, Urine Bilirubin Negative, Urine Urobilinogen 0.2, Ur Leukocyte Esterase Negative, Urine RBC Occasional, Urine WBC 3-5, Urine Bacteria 1+ 07/02/21 01:50: SARS-CoV-2 (PCR) Not detected, Influenza A Untype (PCR) Not detected, Influenza Type B (PCR) Not detected 07/02/21 04:20: WBC 16.9 H, RBC 3.37 L, Hgb 10.8 L, Hct 33.2 L, MCV 98.7 H, MCH 32.1 H, MCHC 32.5, RDW 17.3, Plt Count 218, MPV 8.0, Neut % (Auto) 91.0 H, Lymph % (Auto) 4.0 L, [place] % (Auto) 4.5, Eos % (Auto) 0.3, Baso % (Auto) 0.2, Neut # (Auto) 15.4 H, Lymph # (Auto) 0.7, [place] # (Auto) 0.8, Eos # (Auto) 0.0, Baso # (Auto) 0.0 07/02/21 04:20: Sodium 120 L, Potassium 2.8 L*, Chloride 84 L, Carbon Dioxide 29, Anion Gap 9.8, BUN 6 L, Creatinine 0.50 L, Estimated Creat Clear 152, Estimated GFR 173, Est GFR ( Amer) 209 D, Glucose 132 H, Calcium 7.8 L 07/02/21 04:20: Lactate 0.9 Medical History: Reports:: Cancer (Tongue, 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, records incomplete yes) Denies:: Diabetes Mellitus Type 1, Diabetes Mellitus Type 2, Internal Pacemaker, Lung Disease, Seizures Assessment and Plan (1) Sepsis Status: Suspected Qualifiers: Sepsis type: sepsis due to unspecified organism Sepsis acute organ dysfunction status: without acute organ dysfunction Qualified Code(s): A41.9 - Sepsis, unspecified organism Category: Medical Code(s): A41.9 - Sepsis, unspecified organism (2) Complication of gastrostomy tube Status: Acute Category: Medical Code(s): K94.20 - Gastrostomy complication, unspecified (3) Hypokalemia Status: Acute Category: Medical Code(s): E87.6 - Hypokalemia (4) Hyponatremia Status: Acute Category: Medical Code(s): E87.1 - Hypo-osmolality and hyponatremia (5) Alcohol use Status: Acute Category: Social Hx Code(s): Z72.89 - Other problems related to lifestyle (6) History of tongue cancer Status: Acute Category: Medical Code(s): Z85.810 - Personal history of
[2021-07-02 08:54] LABS: Magnesium 1.2 mg/dl (1.6-2.3)
[2021-07-02 09:07] LABS: Chloride 83 mmol/L (98-107); Sodium 116 mmol/L (136-145)
[2021-07-02 09:09] LABS: Blood Urea Nitrogen 5 mg/dl (9-20); Creatinine Clearance Estimated 127 mL/min (50-200); Estimated Glomerular Filt Rate 140 ml/min (>60); GFR (African American) 169 ML/MIN (>60)
[2021-07-02 09:10] LABS: Alanine Aminotransferase 17 U/L (12-78); Albumin Level 2.9 g/dl (3.5-5.0); Alkaline Phosphatase 141 U/L (38-126); Aspartate Amino Transferase 29 U/L (17-59); Bilirubin,Total 0.6 mg/dl (0.2-1.3); Calcium 7.4 mg/dl (8.4-10.2); Carbon Dioxide 28 mmol/L (22.0-30.0); Globulin 2.8 g/dL (1.3-3.2); Glucose 133 mg/dl (74-100); Phosphorous 3.5 mg/dl (2.5-4.5); Total Protein,Serum 5.7 g/dl (6.3-8.2)
[2021-07-02 09:16] LABS: Activated Partial Thrombo Time 34.5 seconds (22.8-30.6); INR 1.11 (0.9-1.1); Prothrombin Time 12.4 seconds (10.1-12.5)
--- NOTE | 2021-07-02 10:25 | DIET.NUTRFU ---
Addendum entered by Maxine Sierra RD, LD 07/02/21 13:38: Patient had PEG removed, diet upgrade and brought in supplements to help meet his needs. Nursing also offered facilities supplements Original Note: Met with today, the patient has a hx of tongue CA, tobgue moved but reconstructed and most of teeth removed. Sometimes will eat pudding but most liquids for oral intake. He drinks 5 isosource 1.5 per day at home (on a good day) providing 100% of nutritional needs- 1875kcal, 85gm protein and 955ml water. 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 Has been clogged for about 2 months. Provider also indicated he is a heavy drinker- folic acid and thiamine ordered along with MVI. He does handle pills orally whole with water. Observed pill intake during visit. She claims wt is stable, at increased risk for malnutrition. to provide isosource 1.5 x5 when diet advanced, not available to hospital. Reviewed supplements available and she would prefer to bring in when diet advanced.
--- NOTE | 2021-07-02 11:11 | HMH.GSCON ---
*Admission Date: 07/02/21 *Reason for consult:: Problem with PEG tube *History of present illness: Patient is a 56-year-old male who had a PEG tube placed in early February at [facility] at which time he was being treated for head neck cancer with surgery radiation and chemotherapy. Apparently the PEG tube is been nonfunctional for at least a month. He has tried to flush it and had some abdominal pain at the PEG tube site. He presented to the emergency department in the evening of 06/28/2021. 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 Plan was made for follow-up in the office the following day. However, the patient was unable to do so and was scheduled to be seen in the office as an outpatient today. He presented to the emergency department yesterday evening with persistent vomiting. He was tachycardic. He is admitted for inpatient management. Surgery was asked to evaluate his PEG tube. Patient does admit that the PEG tube had sustained traction greater than a month ago and has subsequently been nonfunctional at home. 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 No: Pacemaker - *Social History Smoking Status: Current every day smoker Tobacco Type: cigarettes # Packs/Day (cigarettes): 1 Alcohol Intake: current Alcohol Intake Frequency:: 3 or more drinks per day Substance Use Type: marijuana *Occupational Status:: employed Housing: house Household Members: spouse *Travel in the last 8 weeks: None Family Hx:: Unable to obtain Meds Home Medications Medication Instructions Recorded Confirmed Type Gabapentin [Neurontin 600mg 600 mg PO TID 07/02/21 07/02/21 History tablet] Oxycodone HCl [Oxycodone (IR) 10mg 1 - 2 tab PO Q4HP PRN 07/02/21 07/02/21 History Tab] Prochlorperazine Maleate 10 mg PO Q6HP PRN 07/02/21 07/02/21 History Allergies Allergy/AdvReac Type Severity Reaction Status Date / Time chocolate flavor Allergy Intermediate I-RASH Verified 10/22/20 09:40 [From CHOCOLATE (FOOD/DRUG)] soap Allergy Intermediate I-RASH Verified 10/22/20 09:40 iodine Allergy Unknown Verified 07/02/21 07:58 allergy reaction Exam Vital signs and Labs for Last 24 Hours: Temp Pulse Resp BP Pulse Ox 98.2 F 116 H 20 119/68 97 07/02/21 08:00 07/02/21 08:00 07/02/21 08:00 07/02/21 08:00 07/02/21 08:00 Laboratory Results - last 24 hr 07/01/21 22:22: WBC 16.8 H, RBC 3.56 L, Hgb 11.5 L, Hct 34.8 L, MCV 98.0 H, MCH 32.3 H, MCHC 32.9, RDW 17.2, Plt Count 218 D, MPV 8.3, Neut % (Auto) 93.3 H, Lymph % (Auto) 2.7 L, [place] % (Auto) 2.7, Eos % (Auto) 1.0, Baso % (Auto) 0.2, Neut # (Auto) 15.6 H, Lymph # (Auto) 0.5 L, [place] # (Auto) 0.5, Eos # (Auto) 0.2, Baso # (Auto) 0.0, Total Counted 100, Neutrophils % (Manual) 96 H, Lymphocytes % (Manual) 3 L, Monocytes % (Manual) 1 L, Platelet Estimate Normal, RBC Morphology Not Reportable, Stomatocytes 1+ 07/01/21 22:22: Sodium 118 L, Potassium 3.3 L, Chloride 82 L, Carbon Dioxide 26, Anion Gap 13.3, BUN 6 L, Creatinine 0.60 L, Estimated Creat Clear 125, Estimated GFR 140, Est GFR ( Amer) 169, Glucose 144 H, Calcium 7.9 L, Total Bilirubin 0.5, AST 35, ALT 31, Alkaline Phosphatase 122, Total Protein 6.3, Albumin 3.5, Globulin 2.8, Albumin/Globulin Ratio 1.3, Lipase
[2021-07-02 14:24] LABS: Barbiturates Screen,Urine Negative ng/ml (<200)
[2021-07-02 14:25] LABS: Benzodiazepines Screen,Urine Negative ng/ml (<200)
[2021-07-02 14:26] LABS: Amphetamine/Metha Screen,Urine Negative ng/ml (<1000); Methadone Screen,Urine Negative ng/ml (<300)
[2021-07-02 14:27] LABS: Cannabinoid Screen,Urine Positive ng/ml (<50)
[2021-07-02 14:28] LABS: Cocaine Screen,Urine Negative ng/ml (<300); Opiate Screen,Urine Negative ng/ml (<300)
[2021-07-02 14:29] LABS: Phencyclidine Screen,Urine Negative ng/ml (<25)
--- NOTE | 2021-07-02 15:16 | PC.NURSE ---
1115: Assisted Dr. Swain with bedside G Tube removal. Pt. pre-medicated with morphine 1 mg, IV. G Tube easily removed, no drainage noted upon removal. Dressing applied. Pt. tolerated procedure well.
[2021-07-02 16:28] LABS: Chloride 86 mmol/L (98-107)
[2021-07-02 16:29] LABS: Potassium 3.6 mmoL/L (3.5-5.1); Sodium 116 mmol/L (136-145)
[2021-07-02 16:31] LABS: Blood Urea Nitrogen 5 mg/dl (9-20); Creatinine Clearance Estimated 127 mL/min (50-200); Estimated Glomerular Filt Rate 140 ml/min (>60); GFR (African American) 169 ML/MIN (>60)
[2021-07-02 16:32] LABS: Anion Gap 8.6 mEq/L (5-15); Calcium 7.5 mg/dl (8.4-10.2); Carbon Dioxide 25 mmol/L (22.0-30.0); Glucose 108 mg/dl (74-100)
[2021-07-03] VITALS (7 sets, daily range): BP systolic 110–117; BP diastolic 59–75; PULSE 79–90; RESP 16–18; TEMP 36.5–37; O2SAT 97–98; BMI 19.1
[2021-07-03 06:41] LABS: Basophils % 0.1 % (0.1-2.0); Eosinophils % 0.2 % (0.1-12.0); Hematocrit 31.8 % (42.0-52.0); Hemoglobin 10.4 g/dL (14.1-18.0); Lymphocytes % 6.8 % (10-50); Mean Corpuscular HGB Conc 32.9 g/dL (31.8-35.4); Mean Corpuscular Hemoglobin 32.7 pg (27.0-31.2); Mean Corpuscular Volume 99.4 fl (80-94); Mean Platelet Volume 8.6 fl (7.4-10.4); Monocytes # 0.7 K/mm3 (0.1-1.0); Neutrophils # 12.7 K/mm3 (1.8-7.8); Platelet Count 169 K/mm3 (142-424); Red Cell Distribution Width 17.3 % (11.5-17.5); White Blood Count 14.5 K/mm3 (4.8-10.8)
[2021-07-03 06:48] LABS: Anion Gap 7.6 mEq/L (5-15); Blood Urea Nitrogen 8 mg/dl (9-20); Calcium 7.7 mg/dl (8.4-10.2); Carbon Dioxide 24 mmol/L (22.0-30.0); Chloride 94 mmol/L (98-107); Creatinine Clearance Estimated 151 mL/min (50-200); Estimated Glomerular Filt Rate 173 ml/min (>60); GFR (African American) 209 ML/MIN (>60); Glucose 102 mg/dl (74-100); Potassium 3.6 mmoL/L (3.5-5.1); Sodium 122 mmol/L (136-145)
[2021-07-03 06:49] LABS: MANUAL DIFFERENTIAL MANUAL DIFFERENTIAL (MANUAL DIFF); Magnesium 1.7 mg/dl (1.6-2.3)
--- NOTE | 2021-07-03 07:32 | HMH.ACPN2 ---
Internal Medicine - PN: Subj *Date: 07/03/21 *Time: 07:32 Interval history: Patient has no complaints this morning. G-tube was pulled yesterday. Liquid diet was started. Patient claims to be tolerating this with no nausea and perhaps 1 episode of vomiting yesterday evening. Exam Vital signs and Labs for Last 24 Hours: Temp Pulse Resp BP Pulse Ox 98.6 F 80 16 112/59 L 97 07/03/21 00:00 07/03/21 04:35 07/03/21 00:00 07/03/21 00:00 07/03/21 00:00 Laboratory Results - last 24 hr 07/02/21 00:14: Urine Opiates Screen Negative, Urine Methadone Screen Negative, Ur Barbituates Screen Negative, Ur Phencyclidine Scrn Negative, Ur Amphetamines Screen Negative, U Benzodiazepines Scrn Negative, Urine Cocaine Screen Negative, U Marijuana (THC) Screen Positive H 07/02/21 04:20: Magnesium 1.2 L 07/02/21 08:49: PT 12.4, INR 1.11 H, APTT 34.5 H 07/02/21 08:49: Sodium 116 L, Potassium 3.0 L, Chloride 83 L, Carbon Dioxide 28, Anion Gap 8.0, BUN 5 L, Creatinine 0.60 L, Estimated Creat Clear 127, Estimated GFR 140, Est GFR ( Amer) 169, Glucose 133 H, Calcium 7.4 L, Phosphorus 3.5, Total Bilirubin 0.6, AST 29, ALT 17 D, Alkaline Phosphatase 141 H, Total Protein 5.7 L, Albumin 2.9 L D, Globulin 2.8, Albumin/Globulin Ratio 1.0 L 07/02/21 16:00: Sodium 116 L, Potassium 3.6, Chloride 86 L, Carbon Dioxide 25, Anion Gap 8.6, BUN 5 L, Creatinine 0.60 L, Estimated Creat Clear 127, Estimated GFR 140, Est GFR ( Amer) 169, Glucose 108 H, Calcium 7.5 L 07/03/21 06:08: WBC 14.5 H, RBC 3.20 L, Hgb 10.4 L, Hct 31.8 L, MCV 99.4 H, MCH 32.7 H, MCHC 32.9, RDW 17.3, Plt Count 169, MPV 8.6, Neut % (Auto) 88.0 H, Lymph % (Auto) 6.8 L, [place] % (Auto) 5.0, Eos % (Auto) 0.2, Baso % (Auto) 0.1, Neut # (Auto) 12.7 H, Lymph # (Auto) 1.0, [place] # (Auto) 0.7, Eos # (Auto) 0.0, Baso # (Auto) 0.0 07/03/21 06:08: Sodium 122 L, Potassium 3.6, Chloride 94 L, Carbon Dioxide 24, Anion Gap 7.6, BUN 8 L D, Creatinine 0.50 L, Estimated Creat Clear 151, Estimated GFR 173, Est GFR ( Amer) 209 D, Glucose 102 H, Calcium 7.7 L 07/03/21 06:08: Magnesium 1.7 D I & O for Last 24 hours: Intake & Output 06/30/21 07/01/21 07/02/21 07/03/21 11:59 11:59 11:59 11:59 Intake Total 240 / 240 Output Total 0 / 0 0 / 0 Balance 0 / 0 240 / 240 Weight 142 lb 3.17 oz 140 lb 11.2 oz - Constitutional thin, chronically ill appearing - *Routine Respiratory Exam Present: CTA bilaterally - *Routine Cardiovascular Exam Present: RRR - *Routine Abdominal Exam Present: soft, normoactive bowel sounds. Absent: tenderness - *Routine Extremities Exam Absent: cyanosis, clubbing, edema Assessment and Plan (1) Sepsis Status: Suspected Qualifiers: Sepsis type: sepsis due to unspecified organism Sepsis acute organ dysfunction status: without acute organ dysfunction Qualified Code(s): A41.9 - Sepsis, unspecified organism Category: Medical Code(s): A41.9 - Sepsis, unspecified organism (2) Complication of gastrostomy tube Status: Acute Category: Medical Code(s): K94.20 - Gastrostomy complication, unspecified (3) Hypokalemia Status: Acute Category: Medical Code(s): E87.6 - Hypokalemia (4) Hyponatremia Status: Acute Category: Medical Code(s): E87.1 - Hypo-osmolality and hyponatremia (5) Alcohol use Status: Acute Category: Social Hx Code(s): Z72.89 - Other problems related to lifestyle (6) History of tongue cancer Status: Acute Category: Medical Code(s): Z85.810 - Personal history of malignant neoplasm of tongue - Assessment and plan all Dx Assessment and Plan for all problems:: 1. Advance to full liquids 2. PT eval 3. Sodium is rising, continue NS with potassium chloride 4. Patient was found to be hypomagnesemic. Magnesium was replaced yesterday intravenously and will be replaced again today
[2021-07-03 08:04] LABS: Lymphocytes % 7 % (10-50); Macrocytosis 1+; Monocytes % 6 % (2-9); Neutrophils % 87 % (42-76); Platelet Estimate Normal; Total Cells Counted 100
--- NOTE | 2021-07-03 11:37 | HMH.PTEV ---
Physical Therapy Evaluation Rehab PT IP Evaluation Start: 07/03/21 07:34 Freq: ONCE Status: Active Protocol: Document 07/03/21 11:32 SISSY (Rec: 07/03/21 11:36 PHOSALLY [id number]) Subjective/History History History 56 yowm adm to [facility] with sepsis , prior hx of tongue cancer. He reports he has assistance at home, 1 step to enter, and is generally independent with all mobility. Subjective Subjective He c/o mild abdominal pain and numbness in his fingertips this am. Rehab PT IP Eval Objective Appearance Patient Behavior Appropriate Patient Orientation Person,Place,Time Difficulty following instructions none Speech Pattern Clear Ambulation Patient Able to Ambulate Yes Ambulation Observation IP General Gait Pattern Observation Shuffling Step Ambulation Distance (feet) 25 Ambulation Assistive Device None Ambulation Ability Supervision/Stand by Balance Ability to Arise Able, uses arms to help Sitting Balance Steady, safe Standing Balance Steady, wide stance Dynamic Sitting Balance Ability Good Dynamic Standing Balance Ability Good Transfers Bed Transfer Ability Supervision/Stand by Chair Transfer Ability Supervision/Stand by Sit to Stand Bed Transfer Ability Supervision/Stand by Sit to Stand Chair Transfer Ability Supervision/Stand by Rehab PT IP prob,goals,plan Problems Date of Evaluation: 07/03/21 Discharge Plan PT Discharge Plan Pt is appropriate to return home once medically stable, no current inpatient therapy needs. G -code Required No Eval Complexity Eval Charge Codes 75159 - Moderate Complexity PHYSICIAN CERTIFICATION: I certify the specified therapy services for Da Talbot are required, authorized, and reviewed every 30 days.
[2021-07-03 14:12] LABS: Vancomycin,Trough 11.1 ug/mL (5.0-10.0)
--- NOTE | 2021-07-03 15:25 | DIET.NUTRFU ---
RD saw patient today, continues on full liquids. Due to PMH full liquids is all he consumed at home. Today he had a isosource at bedside and was sipping off it. He said he still hasn't consumed much. Denied any nausea, he reports he is just ready to go home. He did say at home his goal is 5-6 Isosource 1.5/day, had some in room for him. He reported that recently with his decline secondary to PEG infection he had not been feeling up to drinking as many. Currently continues on IVF. Will continue to monitor intake, nutritional needs have to be met via isosource/full liquids
[2021-07-03 17:32] LABS: Vancomycin,Peak 38.7 ug/ml (11-39)
--- NOTE | 2021-07-03 17:44 | PC.NURSE ---
1426-spoke to Nanci Rivera regarding vanc trough results. ok to infuse vanc
[2021-07-04] VITALS: BP 122/71; PULSE 70; PULSE 79; RESP 16; TEMP 36.6; O2SAT 98
[2021-07-04 04:00] VITALS: BP 116/69; PULSE 110; PULSE 77; RESP 17; TEMP 36.6; O2SAT 94
[2021-07-04 06:12] VITALS: BMI 19.1
[2021-07-04 07:03] LABS: Basophils % 0.4 % (0.1-2.0); Eosinophils # 0.1 K/mm3 (0.0-0.4); Eosinophils % 0.6 % (0.1-12.0); Hematocrit 33.9 % (42.0-52.0); Hemoglobin 10.8 g/dL (14.1-18.0); Lymphocytes % 9.4 % (10-50); Mean Corpuscular HGB Conc 31.9 g/dL (31.8-35.4); Mean Corpuscular Hemoglobin 32.5 pg (27.0-31.2); Mean Platelet Volume 8.7 fl (7.4-10.4); Monocytes # 0.7 K/mm3 (0.1-1.0); Monocytes % 6.1 % (1.7-9.3); Neutrophils # 9.3 K/mm3 (1.8-7.8); Neutrophils % 83.6 % (37.0-80.0); Platelet Count 191 K/mm3 (142-424); Red Blood Count 3.32 M/mm3 (4.60-6.20); Red Cell Distribution Width 17.7 % (11.5-17.5); White Blood Count 11.1 K/mm3 (4.8-10.8)
[2021-07-04 07:09] LABS: Anion Gap 6.2 mEq/L (5-15); Blood Urea Nitrogen 7 mg/dl (9-20); Calcium 7.6 mg/dl (8.4-10.2); Carbon Dioxide 24 mmol/L (22.0-30.0); Chloride 97 mmol/L (98-107); Creatinine Clearance Estimated 152 mL/min (50-200); Estimated Glomerular Filt Rate 173 ml/min (>60); GFR (African American) 209 ML/MIN (>60); Glucose 103 mg/dl (74-100); Magnesium 1.7 mg/dl (1.6-2.3); Potassium 3.2 mmoL/L (3.5-5.1); Sodium 124 mmol/L (136-145)
[2021-07-04 07:46] VITALS: BP 128/88; PULSE 81; RESP 16; TEMP 36.7; O2SAT 99
[2021-07-04 08:00] VITALS: PULSE 80
--- NOTE | 2021-07-04 08:13 | HMH.DCSUM ---
General - General Admission date:: 07/02/21 Discharge date: 07/04/21 HPI HPI: 56-year-old male presented to the ER with family over concerns about persistent vomiting over the last 48 hours. Patient has a G-tube which has not been in use for 2 months according to the . 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 Management of this has been performed at . Patient had visited the emergency department on June 28 with abdominal pain and vomiting. There was abnormality of the G-tube seen on CT scan which would require G-tube removal. Patient was supposed to have evaluation as an outpatient but with development of vomiting with attempts at liquids over the last 48 hours he returned to the emergency department. Patient was tachycardic which raises the possibility of sepsis and underwent further work-up. No source of infection was identified. Patient had elevated lactate level which has returned to normal. Patient was admitted and placed on IV antibiotics for suspected infection. Blood cultures have been drawn. History is obtained from patient's and the ER record. Patient seems somewhat sedated this morning and cannot provide much historical information regarding his cancer diagnosis. Hospital Course Hospital Course: Patient was admitted for concerns of sepsis. Patient was started on broad-spectrum antibiotics. White blood cell count was 16,000 on admission and trended down daily until the day of discharge when white count was 11,000. No source of infection was ever identified as chest x-ray did not reveal pneumonia, urinalysis was unremarkable, blood cultures did not grow any organism. Patient improved significantly after removal of his G-tube by the surgical service. Diet was advanced to full liquids which patient tolerated without nausea or vomiting. Patient was discharged home on July 04. Patient will follow up with his oncologist this coming week. Patient was found to be hyponatremic on admission. Patient was started on normal saline with gradual rise in sodium daily. Discharge sodium level was 124 Patient was hypomagnesemic and this was replaced daily with 2 g of IV magnesium sulfate Patient was also hypokalemic and this was corrected with both IV and oral potassium supplementation Objective Vital signs: Temp Pulse Resp BP Pulse Ox 98.1 F 81 16 128/88 99 07/04/21 07:46 07/04/21 07:46 07/04/21 07:46 07/04/21 07:46 07/04/21 07:46 no acute distress, chronically ill appearing - *Routine Respiratory Exam Present: CTA bilaterally - *Routine Cardiovascular Exam Present: RRR - *Routine Abdominal Exam Present: soft, normoactive bowel sounds. Absent: tenderness - *Routine Extremities Exam Absent: cyanosis, clubbing, edema Results Labs on day of discharge: Labs from last 24 hours 07/04/21 07/04/21 07/03/21 06:35 06:35 16:46 WBC 11.1 H RBC 3.32 L Hgb 10.8 L Hct 33.9 L MCV 102.0 H MCH 32.5 H MCHC 31.9 RDW 17.7 H Plt Count 191 MPV 8.7 Neut % (Auto) 83.6 H Lymph % (Auto) 9.4 L [place] % (Auto) 6.1 Eos % (Auto) 0.6 Baso % (Auto) 0.4 Neut # (Auto) 9.3 H Lymph # (Auto) 1.0 [place] # (Auto) 0.7 Eos # (Auto) 0.1 Baso # (Auto) 0.0 Sodium 124 L Potassium 3.2 L Chloride 97 L Carbon Dioxide 24 Anion Gap 6.2 BUN 7 L Creatinine 0.50 L Estimated Creat Clear 152 Estimated GFR 173 Est GFR ( Amer) 209 Glucose 103 H Calcium 7.6 L Magnesium 1.7 Vancomycin Peak 38.7 Vancomycin Trough 07/03/21 12:29 WBC RBC Hgb Hct MCV MCH MCHC RDW Plt Count MPV Neut % (Auto) Lymph % (Auto) [place] % (Auto) Eos % (Auto) Baso % (Auto) Neut # (Auto) Lymph # (Auto) [place] # (Auto) Eos # (Auto) Baso # (Auto) Sodium Potassium Chloride Carbon Dioxide Anion Gap BUN Creatinine Estimated Creat Clear
--- NOTE | 2021-07-06 14:50 | CARE MANAGER ---
Contacted patient regarding recent discharge from the hospital. Patient states that he has been able to keep liquids down, such as soup without any vomiting. He has a follow up appt. with surgical oncologist this week and will inform them of the changes in his electrolytes. States he is taking the Potassium Dr. Donohue prescribed. Denies any questions or concerns. LINUS Goncalves
== END 2021-07-04 10:25 | disposition home or self-care (01) | DRG 872 ==
LOC: ER 21:52 → 2ND 07-02 02:08
PROVIDERS: Admitting Provider Internal Medicine Adolescent Medicine; Emergency Provider Emergency Medicine; PCP Family Medicine; Visit Provider Family Medicine
DX: A41.9 Sepsis, unspecified organism (principal); E87.1 Hypo-osmolality and hyponatremia; E86.0 Dehydration; F17.210 Nicotine dependence, cigarettes, uncomplicated; E87.6 Hypokalemia; Z72.89 Other problems related to lifestyle; K94.20 Gastrostomy complication, unspecified; E83.42 Hypomagnesemia; Z85.810 Personal history of malignant neoplasm of tongue
CPT/HCPCS: 36415; 71045; 74177; 80048; 80053; 80202; 80305; 81001; 83605; 83690; 83735; 84100; 85007; 85025; 85610; 85730; 87040; 96365; 96367; 96375; 97162; 99285; C9803; J2405; J2543; Q9967; U0003; U0005